=== PATIENT | male | born 1980 | race Caucasian/White ===

== ENCOUNTER 2021-01-10 15:07 | Emergency (ER) | payer OTHER ==
[~2021-01-10] VITALS: Ht 188 cm; Wt 95.3 kg
[2021-01-10] MEDS ORDERED: METHADONE10 MG/1 ML (15:22)
[2021-01-10] MEDS ORDERED: CLONAZEPAM1 MG PO (16:56)
== END 2021-01-10 17:15 | disposition home or self-care (01) ==
LOC: ER 15:07
DX: F11.282 Opioid dependence with opioid-induced sleep disorder (principal); T40.2X5A Adverse effect of other opioids, initial encounter; Y92.018 Other place in single-family (private) house as the place of occurrence of the external cause